=== PATIENT | male | born 1970 | race Caucasian/White ===

== ENCOUNTER 2019-09-06 03:12 | Inpatient (IN) | payer OTHER ==
[~2019-09-06] VITALS: Ht 185.4 cm; Wt 77.1 kg
[2019-09-06 03:17] VITALS: Ht 185.4 cm; Wt 77.1 kg
--- NOTE | 2019-09-06 03:23 | NUR ---
PT BIBA TO ED WITH C/C CHEST PAIN. 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 PT DENIES SOB, N/V. DENIES MEDICAL HX. PT GIVEN ASPIRIN 324MG AND 2 DOES OF NITRO EN ROUTE. CHEST PAIN RELIEVED AFTER SECOND NITRO DOSE. LEFT SHOULDER PAIN PERSISTS AND IS SHARP AND 8/10. PT IS AAOX4. RESP E/U. DENIES CHEST PAIN AND LEFT ARM NUMBNESS AT THIS TIME. 18G NOTED TO RIGHT HAND, FLUSHING WELL NO S/S INFILTRATION. 12 LEAD EN ROUTE NSR. CONNECTED TO MONITOR. AWAITING MSE.
[2019-09-06 03:56] LABS: BASOPHIL % 0.5 % (0-2); PLATELET COUNT 301 x10^3mcL (130-400); RED CELL DISTRIBUTION WIDTH 13.1 % (11.5-14.5)
[2019-09-06 04:05] LABS: CALCIUM 8.7 mg/dL (8.5-10.1); CHLORIDE SERUM 105 mmol/L (98-107); CREATININE SERUM 0.8 mg/dL (0.7-1.3); GFR1 > 60 mL/min; GLUCOSE SERUM 102 mg/dL (74-106); SODIUM SERUM 142 mmol/L (136-145)
[2019-09-06 04:09] LABS: ALBUMIN 3.9 g/dL (3.4-5.0); ALKALINE PHOSPHATASE 71 U/L (46-116); ALT/SGPT 28 U/L (16-63); AST/SGOT 16 U/L (15-37); BILIRUBIN TOTAL 0.28 mg/dL (0.20-1.00)
--- NOTE | 2019-09-06 04:22 | NUR ---
DR KAY AT BEDSIDE FOR MSE.
--- NOTE | 2019-09-06 05:32 | NUR ---
REPORT CALLED AND GIVEN TO JUMA MONTES DE OCA.
[2019-09-06 05:55] VITALS: BP 125/77
[2019-09-06 06:22] VITALS: BP 125/77
--- NOTE | 2019-09-06 06:46 | NUR ---
PT RECIEVED FROM ED, AMBULATORY. ACCOMPANIED BY NURSE. PT COMPLAINING OF SHARP CHEST PAIN X1 DAY. PT A/OX4, COMPLAINING OF 6/10 L SHOULDER PAIN. MEDICATED WIT PRN NORCO. TELE 1, SB, WITH ELEVATED T WAVE. DENIES CP, NV, DIZZINESS, AND PALPATATIONS AT THIS TIME. PALPABLE PULSES, NO EDEMA NOTED AT THIS TIME. BREATHING E/U ON RA. DENIES SOB. ABD SOFT ABD ROUND, DENIES PAIN TO PALPATION. AMBULATORY AT BASELINE. RH IV, CDI. ORIENTED TO ROOM AND DEVICES. WILL ENDORSE TO DAY NURSE.
--- NOTE | 2019-09-06 07:40 | NUR ---
REPORT RECEIVED FROM HOUSEKEEPER CHILD CARE RN. PATIENT RESTING COMFORTABLY IN BED. NO SIGNS OF DISTRESS NOTED. NO C/O PAIN. WILL CONTINUE TO MONITOR. CALL LIGHT WITHIN REACH.
[2019-09-06 08:21] VITALS: BP 128/79
[2019-09-06 13:56] LABS: microscopic required? NO
[2019-09-06 14:19] LABS: UA SPECIFIC GRAVITY <=1.005 (1.005-1.035); urine erythrocyte NEGATIVE (NEGATIVE)
[2019-09-06 14:29] LABS: AMPHETAMINE QUAL UR NONE DETECTED (See below)
--- NOTE | 2019-09-06 15:24 | NUR ---
DR. TAMEKA ALMEIDA CARDIOLOGY PAGED REGARDING CARDIOLOGY CONSULT AND PATIENT HAVING RECENT BIGEMINAL PVCS SHOWN ON HEART MONITOR. PATIENT MADE AWARE.
--- NOTE | 2019-09-06 16:54 | NUR ---
DR. ALMEIDA, THERMODYNAMICIST, MADE ROUNDS TO SEE PATIENT. NO NEW ORDERS AT THIS TIME. PATIENT MADE AWARE.
[2019-09-06 17:06] VITALS: BP 138/86
--- NOTE | 2019-09-06 17:59 | NUR ---
DR. SALDIVAR AWARE OF DISCHARGE PLAN WITH DR. ALMEIDA. PLAN TO COORDINATE WITH FAMILY MEDICINE TEAM. PATIENT MADE AWARE.
--- NOTE | 2019-09-06 18:22 | NUR ---
PATIENT RESTING IN BED EATING DINNER. FAMILY AT BEDSIDE. PATIENT EXPRESSED DESIRE TO GO HOME TONIGHT. RELAYED INFORMATION TO CHARGE NURSE. DR. SALDIVAR MADE AWARE. WILL ENDORSE TO DREDGE OPERATOR RN.
--- NOTE | 2019-09-06 20:00 | NUR ---
RECEIVED PT IN BED, A/O X4. DENIES HEADACHE/DIZZINESS. RESP. EVEN AND UNLABORED. ON ROOM AIR, NO ACUTE DISTRESS NOTED. AFEBRILE AND VITAL SIGNS STABLE. SR ON THE MONITOR, DENIES CP OR PRESSURE. IVF , NS AT 100ML/HR, INTACT AND INFUSING VIA RT HAND, SITE CLEAR. AMBULATORY. CALL LIGHT WITHIN REACH. WILL CONTINUE TO MONITOR.
[2019-09-06] MEDS ORDERED: IBUPROFEN400 MG PO (20:29)
[2019-09-06 20:31] VITALS: BP 125/73
[2019-09-06 21:09] VITALS: BP 125/73
--- NOTE | 2019-09-06 22:13 | NUR ---
DISCHARGE HOME ORDERS RECEIVED. PT MADE AWARE. DISCHARGE INSTRUCTIONS GIVEN TO PT, PT VERBALIZED UNDERSTANDING. IVF AND TELE. DISCONTINUED. PT AWAITING FAMILY MEMEBER TO PICK HIM UP AT THIS TIME.
--- NOTE | 2019-09-06 22:50 | NUR ---
FAMILY HERE TO AUTHORIZER PT. DISCHARGED HOME ORDERED. PT,S PERSONAL BELONGINGS GIVEN TO PT.
--- NOTE | 2019-09-07 15:15 | NUR ---
ECHO NOT DONE-DISCHARGED
== END 2019-09-06 22:51 | disposition home or self-care (01) | DRG 206 ==
LOC: ED 03:12 → DU 05:19
PROVIDERS: Family Medicine; ADMIT Internal Medicine
DX: M94.0 Chondrocostal junction syndrome [Tietze] (principal); I24.9 Acute ischemic heart disease, unspecified
CPT/HCPCS: G0378; J7030; Q0092